=== PATIENT | female | born 1965 | race African-American/Black ===

== ENCOUNTER 2019-03-08 12:36 | Emergency (ER) | payer OTHER ==
[2019-03-08 12:45] VITALS: BP 197/102; PULSE 68; TEMP 98.2; BMI 29.3
--- NOTE | 2019-03-08 13:21 | PDOC ---
History of Present Illness - General Chief Complaint: Respiratory Stated Complaint: COUGHING Time Seen by Provider: 03/08/19 13:20 Past History - Past Medical History Allergies/Adverse Reactions: Allergies Allergy/AdvReac Type Severity Reaction Status Date / Time No Known Allergies Allergy Verified 03/08/19 12:40 Asthma: Yes COPD: No HTN: Yes - Immunization History Immunization Up to Date: Yes - Suicide/Smoking/Psychosocial Hx Smoking History: Never smoked Hx Alcohol Use: No Drug/Substance Use Hx: No *Physical Exam - Vital Signs Last Vital Signs Temp Pulse Resp BP Pulse Ox 98.2 F 68 18 197/102 H 100 03/08/19 12:40 03/08/19 12:40 03/08/19 12:40 03/08/19 12:40 03/08/19 12:40
--- NOTE | 2019-03-08 13:31 | PDOC ---
History of Present Illness - History of Present Illness Initial Comments: 53 year old female with PMH of allergies, HTN, and asthma presenting with dry cough for the past week. The cough started one week prior and has been consistent since then but she now experiences a posterior throat dripping sensation. then Denies fevers, chills, nausea, vomiting, diarrhea, or other symptoms. She does not take her claritin, inhaler, and did not take her BP meds today. She is out of her inhaler, and refuses to taker her claritin. She usually takes her anti-HTN meds but did not this AM. 03/08/19 13:42 <Radha Edge - Last Filed: 03/08/19 13:57> <Poonam Diaz - Last Filed: 03/08/19 14:17> - General Chief Complaint: Respiratory Stated Complaint: COUGHING Time Seen by Provider: 03/08/19 13:20 Past History - Past Medical History Asthma: Yes COPD: No HTN: Yes - Immunization History Immunization Up to Date: Yes - Suicide/Smoking/Psychosocial Hx Smoking History: Never smoked Hx Alcohol Use: No Drug/Substance Use Hx: No <Radha Edge - Last Filed: 03/08/19 13:57> <Poonam Diaz - Last Filed: 03/08/19 14:17> - Past Medical History Allergies/Adverse Reactions: Allergies Allergy/AdvReac Type Severity Reaction Status Date / Time No Known Allergies Allergy Verified 03/08/19 12:40 Home Medications: Ambulatory Orders Benzonatate [Tessalon Pearls -] 100 mg PO TID #21 capsule 03/08/19 Ipratropium [place] [Atrovent Hfa] 12.9 gm IH QID PRN #1 [email or web address] 03/08/19 Review of Systems - Review of Systems Constitutional: No: Chills, Diaphoresis, Fever HEENTM: No: Blurred Vision, Tearing Respiratory: Yes: Cough. No: Orthopnea, Shortness of Breath Cardiac (ROS): No: Chest Pain, Edema, Irregular Heart Rate ABD/GI: No: Diarrhea, Nausea, Vomiting : No: Dysuria, Discharge Integumentary: No: Bruising, Erythema Neurological: No: Headache, Numbness, Paresthesia <Radha Edge - Last Filed: 03/08/19 13:57> *Physical Exam - Vital Signs Last Vital Signs Temp Pulse Resp BP Pulse Ox 98.2 F 68 18 197/102 H 100 03/08/19 12:40 03/08/19 12:40 03/08/19 12:40 03/08/19 12:40 03/08/19 12:40 - Physical Exam General Appearance: Yes: Nourished, Appropriately Dressed. No: Apparent Distress, Disheveled HEENT: positive: EOMI, LEA, Normal ENT Inspection, Normal Voice Neck: positive: Trachea midline, Normal Thyroid, Supple. negative: Tender, Rigid Respiratory/Chest: positive: Lungs Clear, Normal Breath Sounds. negative: Chest Tender, Respiratory Distress, Accessory Muscle Use Cardiovascular: positive: Regular Rhythm, Regular Rate Gastrointestinal/Abdominal: positive: Normal Bowel Sounds, Flat, Soft. negative : Tender Musculoskeletal: positive: Normal Inspection. negative: Decreased Range of Motion Extremity: positive: Normal Capillary Refill, Normal Inspection, Normal Range of Motion. negative: Tender Integumentary: positive: Normal Color, Dry, Warm Neurologic: positive: Fully Oriented, Alert, Normal Mood/Affect, Normal Response , Motor Strength 5/5 <Radha Edge - Last Filed: 03/08/19 13:57> - Vital Signs Last Vital Signs Temp Pulse Resp BP Pulse Ox 98.2 F 68 18 197/102 H 100 03/08/19 12:40 03/08/19 12:40 03/08/19 12:40 03/08/19 12:40 03/08/19 12:40 <Poonam Diaz - Last Filed: 03/08/19 14:17> ED Treatment Course - RADIOLOGY Radiology Studies Ordered: Category Date Time Status CHEST PA & LAT [RAD] Stat Radiology 03/08/19 12:51 Completed <Poonam Diaz - Last Filed: 03/08/19 14:17> Medical Decision Making - Medical Decision Making 53 year old female with PMH of asthma and allergies. No fevers or signs of systemic infection. CXR clear. Likely allergic rhinitis vs. viral uri. Will DC with cough syrup, Claritin, and inhaler. 03/08/19 14:03 <Radha Edge - Last Filed: 03/08/19 13:57> *DC/Admit/Observation/Transfer - Discharge Dispostion Decision to Admit order: No <Radha Edge - Last Filed: 03/08/19 13:57> <Poonam Diazizabeladalila - Last Filed: 03/08/19 14:17> Diagnosis at time of Disposition: Environmental allergies, PND (post-nasal drip) - Discharge Dispostion Disposition: HOME Condition at time of disposition: Improved - Prescriptions Prescriptions: Benzonatate [Tessalon Pearls -] 100 mg PO TID #21 capsule Ipratropium [place] [Atrovent Hfa] 12.9 gm IH QID PRN #1 [email or web address] PRN Reason: Cough - Referrals Referrals: [facility] [Provider Group] - Patient Instructions Printed Discharge Instructions: Allergic Rhinitis Additional Instructions: Please use your medications as prescribed. Please take your claritin daily. lease use the cough medication as prescribed. Please use your inhaler if needed. This cough is likely related to your allergies only. - Post Discharge Activity Forms/Work/School Notes: Back to Work
--- NOTE | 2019-03-08 13:46 | PDOC ---
Attending Attestation - Resident Resident Name: Radha Edge - ED Attending Attestation I have performed the following: I have examined & evaluated the patient, The case was reviewed & discussed with the resident, I agree w/resident's findings & plan - HPI HPI: 03/08/19 14:12 The patient is a 53-year-old female, with a past medical history of asthma, HTN , and seasonal allergies, who presents to the ED with 1 week of cough and postnasal drip, sore throat. The patient usually is supposed to take claritin and use her inhaler for her allergy symptoms, but she refuses to take her claritin and does not have an inhaler. has not seen PMD for "a while." she also forgot antihypertensive meds. 03/08/19 14:13 - Physicial Exam PE: 03/08/19 14:11 Agree with the resident's HPI and PE as documented in the electronic medical record. NAD, well appearing, PERRL, EOMI, MMM, nl conjunctiva, anicteric; normal phonation, clear oropharynx, uvula midline, neck supple. lungs clear, RRR, abdomen soft nontender. ALANIS x4, no focal neuro deficits. No peripheral edema. normal color for ethnicity, WWP. no LAD - Medical Decision Making 03/08/19 14:13 Vital signs reviewed, within normal limits - hypertensive but also missed AM meds and asymptomatic., no hypoxia respiratory distress. Chest x-ray is clear, no evidence of infection or edema. No wheezing present, she is speaking in clear full sentences on examination of all within normal limits. Will Rx albuterol inhaler, use every 4-6 hours as needed for cough. Told to take second-generation anti-histamines for her seasonal ALLERGIES as she is noncompliant with her regimen due to the current pollen season. Instructed to resume Claritin once a day where she can change to Zyrtec or Zahida. Sore Throat is most likely postnasal drip as her oropharynx is clear, uvula midline and normal phonation asymptomatic HTN, no indication to treat, established and missed her meds this Am. she can resume regimen at home and told to be compliant. Pt to be discharged in stable condition. Patient made aware of impression and plan, return precautions discussed (including but not limited to worsening pain or symptoms), fevers, or signs of infection, chest pain, respiratory distress, inability to tolerate oral intake, dehydration, syncope, or neurologic changes) . Follow up with PMD and/or specialist as recommended, follow up information provided, take medications as instructed for duration of time. continue with supportive care, avoid triggers and precipitants. All questions answered to patient's satisfaction and expressed understanding and comfort with this. Patient does not suffer from an acute life-threatening medical condition at this time she is safe for outpatient follow-up.
== END 2019-03-08 14:57 | disposition home or self-care (01) ==
LOC: JER 12:36
DX: T78.49XA Other allergy, initial encounter (principal); X58.XXXA Exposure to other specified factors, initial encounter; R09.89 Other specified symptoms and signs involving the circulatory and respiratory systems; J45.909 Unspecified asthma, uncomplicated
CPT/HCPCS: 71046-TC-FY; 99281-25